=== PATIENT | male | born 1970 | race Caucasian/White ===

== ENCOUNTER 2017-06-27 10:42 | Emergency (ER) | payer OTHER ==
[~2017-06-27] VITALS: Ht 167.6 cm; Wt 96.8 kg
[2017-06-27] MEDS ORDERED: VENTOLIN HFA18 GM IH (11:50)
[2017-06-27] MEDS ORDERED: PRINIVIL5 MG PO (11:50)
[2017-06-27] MEDS ORDERED: PERCOCET 5/31 TABLET PO (12:13)
[2017-06-27 13:04] VITALS: BP 118/79
== END 2017-06-27 13:06 | disposition home or self-care (01) ==
LOC: EME 10:42 → EDBD 10:42 → EME 13:06
DX: M62.838 Other muscle spasm (principal); M54.2 Cervicalgia; S93.601A Unspecified sprain of right foot, initial encounter; V28.4XXA Motorcycle driver injured in noncollision transport accident in traffic accident, initial encounter
CPT/HCPCS: 72125; 73610; 73630; 99281; 99284; J1885; J3010